=== PATIENT | female | born 1945 | race Caucasian/White ===

== ENCOUNTER → 2018-06-10 | Outpatient (CLI) | payer OTHER ==
[~2018-06-10] VITALS: Ht 154.9 cm; Wt 50.4 kg
[~2018-06-10] MED LIST: FOSAMAX 70 MG T70 MG PO; HYDROCODON-ACE1 EAC7 PO; LIPITOR 20 MG T20 M1 PO; MEDROLDOSEPACK PO; NORCO 5-325 TA1 EACH PO; PRINIVIL20 M1 PO
[2018-06-10 08:19] VITALS: BP 149/89
--- NOTE | 2018-06-10 08:43 | NUR ---
Pain Clinic Assessment: 1. History of Osteoarthritis: History of Rheumatoid Arthritis: 2. Height: 5 ft. 1 in. 154.9 cm. Weight: 111.2 lb. oz. 50.440 kg. Patient's BMI: 21.0 3. Vital Signs: BP: 149/89 Pulse: 77 Resp: 16 Temp: 02 Sat: 99 ECG Mon: 4. Pain Intensity: 8-9 5. Fall Risk: Dizziness: N Needs help standing or walking: N Fallen in the last 3 months: N Fall risk comments: 6. Patient on Blood Thinner: None 7. History of Hypertension: Y 8. Opioid Therapy greater than 6 weeks: Y Opiate Contract Signed: 9. Risk Assessment Tool Provided: LOW 10. Functional Assessment Tool: 60/70 11. Recreational Drug Use: Never Drug Type: Tobacco Use: Never Smoker Tobacco Type: Amount or Packs/day: How Many Years: Alcohol Use: Yes Frequency: Special Occasions Quant:
--- NOTE | 2018-06-16 08:15 | HPC ---
[facility] [place] [address] PAIN MANAGEMENT CONSULTATION Name: LIZBETH SANDOVAL Room #: REG [facility]..#: [id number] Admission: 06/10/18 ������������������ Attend Phys: Sergio Person DO Discharge: ������������������ Date of : 41 Report #: [id number] THIS REPORT FOR: //name// CC: FAM physician/PCP Sergio Martin MD REFERRING PHYSICIAN: Dr. Negin Martin. HISTORY OF PRESENT ILLNESS: As you know, the patient is a 73-year-old female who had an acute onset of low back pain, right lower extremity pain that began on 06/06/2018. The patient denies any specific injury or trauma, but believes it may have been caused by riding an exercise bicycle. She states that after she mounted the bicycle, it began to rise, she began to experience buttock and posterolateral thigh pain. She subsequently discontinued this activity, but her pain then progressively worsened over the past couple of days. She has no symptoms radiating below the knee typically, but has had a couple of shooting sensations radiating down all the way into the foot. She has sought no treatment from her primary care physician nor has she had been to the Emergency Department for evaluation. There are no imaging studies available. She was referred to our clinic after contacting her PCP's office. The patient describes pain as steady and constant. She uses terms such as shooting, aching, throbbing, pounding, sharp, stabbing, tender, numbness and tingling when describing pain. She places current pain score at 8-9/10, daily average at 8-9/10, worst pain has been is 10/10. The patient states that movement, lifting her leg and certain activities exacerbate symptoms. Heating pad and hydrocodone tend to help pain. She has been referred to our service for evaluation for acute onset of back pain beginning 4 days ago. She has not been participating in any physical therapy nor has imaging studies been performed. PAST MEDICAL HISTORY: 1. Hypertension. 2. Degenerative joint disease. 3. Osteoarthritis. 4. Dyslipidemia. 5. Osteoporosis. PAST SURGICAL HISTORY: 1. Excision of a ganglion cyst. 2. Total knee arthroplasty. SOCIAL HISTORY: The patient denies tobacco, IV or illicit drug use. She admits to occasional alcohol beverage. She is retired, retired years ago. She is accompanied by her who is present in room today. She is not receiving disability income. She is not in litigation in regards to pain. [facility] [address] [place] [address] PAIN MANAGEMENT CONSULTATION Name: LIZBETH SANDOVAL Room #: REG CLJay Meza#: [id number] Admission: 06/10/18 ������������������ Attend Phys: Sergio Person DO Discharge: ������������������ Date of : 41 Report #: [id number] REVIEW OF SYSTEMS: Positive for decrease in appetite, fatigue and weakness, wearing corrective eyewear, hearing loss with tinnitus, loss of appetite, changes in bowel movements, constipation, frequent urination, nocturia, difficulty ambulating secondary to pain, weakness in the right lower extremity due to pain. All other review of systems are negative per 12-point review of systems other than those listed in the history of present illness. Pain impact score 60/70 indicating severe near complete interference of daily activities secondary to pain. ALLERGIES: ERYTHROMYCIN. CURRENT MEDICATIONS: Hydrocodone 5/325 one tab p.o. q. 8 hours p.r.n. for pain, alendronate 70 mg once a week, lisinopril 20 mg per day, atorvastatin 20 mg per day. IMAGING: There is no imaging available. PQRS: The patient has known osteoarthritic changes of the bilateral knees. She does not suffer from rheumatoid arthritis. She is placing pain intensity today at 8-9/10. She is a fall risk, but has not had a fall in the last 3 months. She is using a cane for ambulation. She is not on blood thinners. She is treated for hypertension. She has been on opioids on and off for greater than 6 weeks status post total knee arthroplasty. She has a low risk for opioid addiction. Pain impact score 60/70 indicating severe near complete interference of daily activities secondary to pain. PHYSICAL EXAMINATION: VITAL SIGNS: Blood pressure 149/89, pulse is 77, respiratory rate 16 and unlabored, O2 sat 99% on room air. Height 5 feet 1 inch tall, weight 111.2 pounds, BMI calculated 21.0. GENERAL: Well-developed, well-nourished, well-hydrated, thin, 73-year-old female appearing stated age, placing current pain score at 8-9/10. HEENT: Normocephalic, atraumatic. Pupils equal, round, reactive to light. Extraocular muscles are intact. Sclerae nonicteric without injection. NEUROLOGIC: Cranial nerves 2-12 grossly intact. Speech fluent. The patient deemed a good historian. LUNGS: Clear, no wheeze, rhonchi or rales. CARDIOVASCULAR: Regular. No appreciable gallop, no rub. ABDOMEN: Soft, nontender, normal active bowel sounds. EXTREMITIES: Show no clubbing, no cyanosis, no edema. MUSCULOSKELETAL: Lower extremity strength appears symmetrical 5/5, significant giveaway strength noted with pain generation with hip flexion and knee extension on the right when compared to left. Muscle bulk and tone is symmetrical when comparing left lower extremity to right. She is intact to light touch from L1 through S2 dermatomes with typical decreased tactile sensation around the right [facility] [address] [place] [address] PAIN MANAGEMENT CONSULTATION Name: LIZBETH SANDOVAL Room #: REG CLI ..#: [id number] Admission: 06/10/18 ������������������ Attend Phys: Sergio Person DO Discharge: ������������������ Date of : 43 Report #: [id number] knee, status post total knee arthroplasty. Ankle clonus negative. Babinski is negative. Ankle reflexes are normal 1+, equal. Seated straight leg raising positive. Supine straight leg raising positive. Majo's test is negative. ASSESSMENT: 1. Lumbar radiculopathy. 2. Lumbosacral spondylosis with radicular symptoms. PLAN: 1. Based on today's physical exam and history the patient has provided, the description the patient uses in regards to pain as well as the location of symptoms, likely source of the patient's pain is lumbar radiculopathy. We discussed at length today treatment options for lumbar radicular symptoms. The following was discussed with the patient. We discussed physical therapy, stretching exercises, core strengthening as a treatment option. She is yet to initiate any of these more conservative treatment options. We discussed medication management trying to alleviate the symptoms that she is experiencing with either neuropathic pain medications or anti-inflammatory therapy. We discussed lumbar epidural injections for which the patient was referred to our clinic and ultimately surgical options. After reviewing the risks and benefits of all proposed treatment options, the patient chose to move forward with a lumbar epidural injection. The patient was advised that third [employer] payer restrictions require that authorization be obtained before the patient can undergo a lumbar epidural injection. Authorization will take anywhere from 4-7 working days. We will begin this process immediately and contact the patient once we have the authorization to undergo the procedure. 2. We have recommended the patient start a Medrol Dosepak. I prescribed this pack to be taken as directed. This will help with the inflammation the patient is experiencing and potentially reduce the overall pain the patient currently has. We have given this prescription to the patient to fill immediately and begin today. She will watch for side effects, typically flushing sensations, excessive hunger, possibly weight gain and emotional lability. If she notes any side effects, contact our clinic. 3. I have provided the patient with a short dosing of hydrocodone 5/325 one tab p.o. q. 4 hours p.r.n. for pain, I have given the patient #30 tablets, advised to take only when pain is intolerable, not to rely on the medication prophylactically. 4. We will send the patient for x-ray imaging of the lumbar spine. AP imaging will be obtained today. We will review the findings once they are available. The patient can contact our clinic tomorrow for the findings. 5. We wish to thank the referring physician for the opportunity to see the patient in consultation. We will keep you apprised of response to treatment as we address suspected lumbar radiculopathy. We will keep you apprised of her [address] [address] PAIN MANAGEMENT CONSULTATION Name: LIZBETH SANDOVAL Room #: REG CLJay Meza#: [id number] Admission: 06/10/18 ������������������ Attend Phys: Sergio Person DO Discharge: ������������������ Date of : 41 Report #: [id number] response to the epidural injection assuming we can gain authorization quickly and have the patient undergo the procedure in the next couple of days. ��������������������������������������������� <ELECTRONICALLY SIGNED> ���������������������������������������� By: Sergio Person DO ��������������������������������������������� 06/16/18 0815 [id number] [id number] Sergio Person DO /nt
== END ==
LOC: PAIN 07:04
DX: M47.26 Other spondylosis with radiculopathy, lumbar region (principal); M41.86 Other forms of scoliosis, lumbar region; M51.35 Other intervertebral disc degeneration, thoracolumbar region; I10 Essential (primary) hypertension; M19.90 Unspecified osteoarthritis, unspecified site; E78.5 Hyperlipidemia, unspecified; M81.0 Age-related osteoporosis without current pathological fracture; Z88.1 Allergy status to other antibiotic agents; Z79.899 Other long term (current) drug therapy

== ENCOUNTER → 2018-06-17 | Outpatient (CLI) | payer OTHER ==
[~2018-06-17] VITALS: Ht 154.9 cm; Wt 50.3 kg
[2018-06-17 10:50] VITALS: BP 111/70
--- NOTE | 2018-06-17 10:57 | NUR ---
Pain Clinic Assessment: 1. History of Osteoarthritis: History of Rheumatoid Arthritis: 2. Height: 5 ft. 1 in. 154.9 cm. Weight: 111.0 lb. oz. 50.349 kg. Patient's BMI: 21.0 3. Vital Signs: BP: 111/70 Pulse: 82 Resp: 14 Temp: 02 Sat: 100 ECG Mon: 4. Pain Intensity: 5-6 5. Fall Risk: Dizziness: N Needs help standing or walking: N Fallen in the last 3 months: Y Fall risk comments: 6. Patient on Blood Thinner: None 7. History of Hypertension: Y 8. Opioid Therapy greater than 6 weeks: Y Opiate Contract Signed: 9. Risk Assessment Tool Provided: LOW 10. Functional Assessment Tool: 60/70 11. Recreational Drug Use: Never Drug Type: Tobacco Use: Never Smoker Tobacco Type: Amount or Packs/day: How Many Years: Alcohol Use: No Frequency: Quant:
--- NOTE | 2018-06-23 07:33 | HPC ---
[facility] [place] [address] PAIN MANAGEMENT CONSULTATION Name: JAIMEXOCHILT Room #: REG [facility] MJulienne.#: [id number] Admission: 06/17/18 ������������������ Attend Phys: Sergio Person DO Discharge: ������������������ Date of : 41 Report #: [id number] THIS REPORT FOR: //name// CC: FAM physician/PCP JORGE L Person DATE OF SERVICE: 06/17/2018 REFERRING PHYSICIAN: Dr. Jorge L Martin. CHIEF COMPLAINT: Low back pain, right lower extremity pain and paresthesias. HISTORY OF PRESENT ILLNESS: As you know, the patient is a 73-year-old female who had acute onset of low back pain, right lower extremity pain that began on 06/06/2018. She denied any specific injury or trauma that may have led to symptom development. She believes she may have exacerbated symptoms while riding an exercise bicycle as her pain began soon after this activity. She was referred to our clinic for evaluation for suspected lumbar radiculopathy. At her first visit, the patient was seen without any imaging studies. She was sent for x-ray imaging of the lumbar spine for further evaluation. X-ray findings show diffuse lumbar spondylosis. Degenerative disk disease of the thoracolumbar spine was also noted. Severe disk changes at the T10-T11, T11-T12, T12-L1, L1-L2, L2-L3 and L5-S1, moderate disk space loss at L3-L4 and L4-5. She returns today in followup visit where we have reviewed this x-ray imaging and discussed treatment options for ongoing low back pain, right lower extremity pain with paresthesias. She indicates pain today is constant, steady, aching, shooting, throbbing, pounding, sharp, stabbing and tender, placing pain at 6/10. Moving her leg exacerbate symptoms. Heat pad, hydrocodone and lying down tends to improve pain. She has returned today in followup visit having received precertification to undergo lumbar epidural injection under fluoroscopic guidance. She is also requesting refill of hydrocodone. ALLERGIES: ERYTHROMYCIN, CEFDINIR. CURRENT MEDICATIONS: Hydrocodone, Fosamax, lisinopril and atorvastatin. SOCIAL HISTORY: The patient denies tobacco, IV or illicit drug use. Admits to occasional alcohol beverage. She is retired, retired years ago, accompanied by her present in room today. IMAGING DATA: X-rays show diffuse lumbar spondylosis and degenerative changes, essentially from T10 all the way to L5-S1, with moderate disk height loss noted at L3-L4 and L4-L5. PHYSICAL EXAMINATION: [address] [address] PAIN MANAGEMENT CONSULTATION Name: LIZBETH SANDOVAL ANN Room #: REG Jay [facility]rera.#: [id number] Admission: 06/17/18 ������������������ Attend Phys: Sergio Person DO Discharge: ������������������ Date of : 41 Report #: [id number] VITAL SIGNS: Blood pressure 111/70, pulse 82, respiratory rate 14 and unlabored. The patient is 100% on room air. Height 5 feet 1 inch tall, weight 111 pounds, BMI calculated 21.0. GENERAL: Well-developed, well-nourished, well-hydrated 73-year-old female, appears her stated age. She is in mild distress secondary to pain, placing current pain score 5-6/10. HEENT: Normocephalic, atraumatic. Pupils equal, round, reactive to light. Extraocular muscles are intact. Sclerae nonicteric without injection. NEUROLOGIC: Cranial nerves 2-12 grossly intact. Speech fluent. The patient deemed a fair historian. EXTREMITIES: Show no clubbing, no cyanosis, and no edema. MUSCULOSKELETAL: Lower extremity strength is weakened slightly on the right compared to left. This is noted with hip flexion, knee extension, appears to be related to pain generation, not intrinsic muscle problems. Intact to light touch from L1 through S2 dermatomes. Seated straight leg raising positive on the right. Supine straight leg raising positive on the right. Majo test is negative. Gait antalgic favoring right lower extremity over left. ASSESSMENT: 1. Lumbar radiculopathy. 2. Displacement of lumbar intervertebral disk with radiculopathy. 3. Lumbosacral spondylosis with radiculopathy. 4. Degeneration of lumbar spine. 5. Facet arthropathy of the lumbar spine. 6. Chronic intractable pain. PLAN: 1. The patient has returned today in followup visit where we reviewed her x-ray imaging. There are significant changes, essentially from the T10-[address] to the L5-S1 level, with L3-L4 and L4-L5 being only moderately noted to have disk desiccation and disk height loss. Remainder of the lumbar spine shows severe height loss, which would correlate to likely central canal stenosis and certainly neural foraminal stenosis. We discussed with the patient the findings of the x-ray today. Further evaluation may be necessary with MRI. 2. The patient has been consented, and we will perform lumbar epidural injection under fluoroscopic guidance. We have received preauthorization to undergo the procedure. She was advised the risks and benefits, states understood and wished to proceed. The risks that we discussed today were bleeding, bruising, infection, worsening pain, no relief of pain, also risk of temporary or permanent muscle weakness, temporary or permanent nerve damage, possible paralysis, post-dural puncture headache and . The patient states understood and wished to proceed. 3. No medication changes made at today's visit. The patient will continue current medical therapy as previously prescribed. 4. I did provide the patient with a refill prescription of hydrocodone 5/325 one tab p.o. q.4 hours p.r.n. for pain, I have given the patient #60 tablets, [address] [address] PAIN MANAGEMENT CONSULTATION Name: LIZBETH SANDOVAL Room #: REG AMMY Meza#: [id number] Admission: 06/17/18 ������������������ Attend Phys: Sergio Person DO Discharge: ������������������ Date of : 43 Report #: [id number] advised the patient to take the medication only when pain is intolerable, not to rely on this medication prophylactically. A prescription was given with no refills. 5. We will see the patient back in followup visit on an as needed basis for possible next in the series of epidural injections. PROCEDURE NOTE DESCRIPTION OF PROCEDURE: L5-S1 right paramedian epidural steroid injection under fluoroscopic guidance. This is the first procedure of the first series that the patient is undergoing. After obtaining written consent, the patient was taken back to the fluoroscopy suite, placed in a prone position with pillow under the abdomen to decrease lumbar lordosis. The skin overlying the lumbosacral area was then prepped and draped in aseptic fashion. The L5-S1 vertebral interspace was then identified by AP fluoroscopy. The skin and subcutaneous tissue overlying the target site of injection was anesthetized with 3 mL 1% lidocaine. A 20-gauge 3-1/2 inch Tuohy needle was then advanced under fluoroscopic guidance towards the epidural space using a right paramedian approach. The epidural space was identified using loss of resistance to air technique. After negative aspiration for heme or cerebrospinal fluid, a total of 1 mL of Omnipaque was injected. A lumbar epidurogram was confirmed using both AP and lateral fluoroscopy. After negative aspiration for heme or cerebrospinal fluid, 5 mL of a solution containing 2 mL 40 mg per mL, 80 mg total triamcinolone, 3 mL of lidocaine 1% was injected in increments. Contrast spread was noted in posterior epidural space. The needle was then retracted approximately half way and needle tract flushed with 1 mL of lidocaine. Needle was then removed. There were no apparent sensory or motor deficits in the lower extremity following the procedure. A sterile bandage was placed over the injection site. The heart rate, pulse, oximetry and blood pressure were continuously monitored after the procedure. There were no apparent complications. The patient tolerated the procedure well and was carefully escorted to the recovery room in stable condition. There were no apparent complications. After meeting discharge criteria, the patient was then discharged home. ��������������������������������������������� <ELECTRONICALLY SIGNED> ���������������������������������������� By: Sergio Person DO ��������������������������������������������� 06/23/18 0733 [id number] [id number] Sergio Person DO /nt
== END | disposition home or self-care (01) ==
LOC: PAIN 06-16 09:21
DX: M51.16 Intervertebral disc disorders with radiculopathy, lumbar region (principal); M47.27 Other spondylosis with radiculopathy, lumbosacral region; M46.96 Unspecified inflammatory spondylopathy, lumbar region; G89.29 Other chronic pain; Z88.8 Allergy status to other drugs, medicaments and biological substances; Z79.891 Long term (current) use of opiate analgesic; Z79.899 Other long term (current) drug therapy

== ENCOUNTER → 2018-06-26 | Outpatient (CLI) | payer OTHER ==
[~2018-06-26] MED LIST changes: +NEURONTIN 300300 M1 PO
== END ==
LOC: MRI 12:14
DX: M51.16 Intervertebral disc disorders with radiculopathy, lumbar region (principal); M48.061 Spinal stenosis, lumbar region without neurogenic claudication; M43.16 Spondylolisthesis, lumbar region

== ENCOUNTER → 2018-06-30 | Outpatient (CLI) | payer OTHER ==
[~2018-06-30] VITALS: Ht 154.9 cm; Wt 49.4 kg
--- NOTE | ~2018-06-30 | HPC ---
[facility] [address] [place] [address] PAIN MANAGEMENT CONSULTATION Name: LIZBETH SANDOVAL ANN Room #: REG Jay Cabrera.#: [id number] Admission: 06/30/18 ������������������ Attend Phys: Sergio Person DO Discharge: ������������������ Date of : 41 Report #: [id number] THIS REPORT FOR: //name// CC: [facility] physician/PCP Sergio Martin MD Physician staff DATE OF SERVICE: 07/08/2018 REFERRING PHYSICIAN: Dr. Negin Martin. CHIEF COMPLAINT: Low back pain, right lower extremity pain and paresthesias. HISTORY OF PRESENT ILLNESS: As you know, the patient is a 73-year-old female who returns today in followup visit with pain level of 5-6/10. She reports that previous evaluation and medication refills along with the right paramedian epidural injection provided improvement in symptoms, but unfortunately, this injection only provided minimal long-term gain. She returns to discuss options for treatment. She denies new injury or trauma that may have led to symptom recurrence. As you are aware, the patient has severe disk changes at T10-T11, T11-T12, T12-L1, L1-L2, L2-L3 and L5-S1. There is a likely source of the patient's symptoms is of lumbar radiculopathy with facet arthropathy pain. She wishes to discuss other treatment options as the injection provided at last visit did not provide benefit. ALLERGIES: E-MYCIN, CEFDINIR. CURRENT MEDICATIONS: Hydrocodone, Fosamax, lisinopril and atorvastatin. SOCIAL HISTORY: The patient denies tobacco, IV or illicit drug use. Admits to an occasional alcoholic beverage use. She is retired, retired years ago, unaccompanied today. IMAGING: No further imaging available. PQRS: The patient has known arthritic changes of the thoracolumbar spine, the bilateral hips and bilateral knees. She does not have rheumatoid arthritis. She is placing current pain score at 5-6/10. She is not a fall risk, but did have a fall recently. Apparently, she lost balance, this is not typical for her. She is not on blood thinners. She is treated for hypertension. She is on opioids. She has a low opioid addiction potential and she is placing pain impact score at 60/70 indicating essentially complete interference of daily activities secondary to pain. PHYSICAL EXAMINATION: [facility] [address] [place] [address] PAIN MANAGEMENT CONSULTATION Name: LIZBETH SANDOVAL Room #: REG JHONJay Meza#: [id number] Admission: 06/30/18 ������������������ Attend Phys: Sergio Person DO Discharge: ������������������ Date of : 41 Report #: [id number] VITAL SIGNS: Blood pressure 141/78, pulse 71, respiratory rate 16 and unlabored. The patient is 100% on room air. Height 5 feet 1 inch tall, weight 109 pounds, BMI calculated 20.6. GENERAL: Well-developed, well-nourished, well-hydrated, thin 73-year-old female, appearing stated age. Pain is rated somewhere between 5-6/10. HEENT: Normocephalic, atraumatic. Pupils equal, round, reactive to light. EXTREMITIES: Show no clubbing, no cyanosis and no edema. MUSCULOSKELETAL: Lower extremity strength appears weakened bilaterally, right greater than left. Noted hip flexion, knee extension pain. She remains intact to light touch from L1 through S2 dermatomes. Seated straight leg raising positive. Supine straight leg raising positive. Majo's test negative. Modified Gaenslen's positive for axial low back pain. ASSESSMENT: 1. Symptomatic lumbar radiculopathy. 2. Displacement of lumbar intervertebral disk with radiculopathy. 3. Lumbosacral spondylosis with radiculopathy. 4. Lumbar degeneration. 5. Facet arthropathy of the lumbar spine. 6. Chronic intractable pain. PLAN: 1. The patient returns today in followup visit having noted only transient improvement in symptoms with the epidural injection provided at last visit. Would not recommend that further treatments with epidural injections be provided at this juncture. Would recommend adjustments in medication therapy. We are also recommending physical therapy. 2. The patient will be sent for physical therapy twice a week for 4-6 weeks. She will begin the physical therapy as quickly as possible. We will await their evaluation and we will make adjustments as necessary to help the patient's symptoms. 3. We reviewed the fact that opiate medications are being used to provide analgesia adequate to support activities of daily living, not attempting to achieve a specific pain score on the 0-10 Visual Analog Scale. The current opiate medications are providing sufficient analgesia to allow the patient to participate in activities of daily living. The patient is not exhibiting any aberrant behavior suggestive of drug diversion. The patient is not having any adverse reactions to medications. The patient is not suffering from daytime somnolence or mental acuity changes. The patient is managing opiate-induced constipation with appropriate [id number] agents and dietary considerations. The patient was counseled on concern for caution with operating a motor vehicle while using opiate medications. A physical exam was performed and the patient's functional status was evaluated. All patients with back pain were advised against the bed rest greater than 4 days and were advised to return to normal activities. Pain score assessment was [address] [address] PAIN MANAGEMENT CONSULTATION Name: LIZBETH SANDOVAL Room [facility] [id number] Admission: 06/30/18 ������������������ Attend Phys: Sergio Person DO Discharge: ������������������ Date of : 41 Report #: [id number] noted and the treatment plan was reviewed with the patient. All current medications, both prescribed and OTC were reviewed and reconciled on the electronic medical record. Tobacco screening was accomplished and smoking cessation was advised when indicated. BMI was noted and diet/exercise modification was recommended for all patients following outside normal parameters. I reviewed with the patient today their responsibilities to safeguard prescription medications, reviewed their responsibility to utilize medications only as prescribed by the physician. They are to seek and receive pain medications only from 1 physician group ( [facility]). They are to use 1 pharmacy and keep the clinic informed if they change pharmacies. Their responsibilities include making followup visits in a timely fashion and to avoid abrupt discontinuation of medication usage. Their responsibilities further include bringing their medications (bottles from the pharmacy with residual pills) to the visit for possible confirmation of pill counts and the patient understands it is their responsibility to submit to random drug screens to ensure both that the medications prescribed are present, and that no other controlled substances are present. All prescriptions provided today were generated electronically. 4. The patient was provided prescription of hydrocodone/acetaminophen 5/325 one tablet p.o. q. 4-6 hours p.r.n. for pain. I have given the patient #60 tablets, no refills. Advised to take the medication as directed, not to rely on the medication prophylactically. 5. We will increase the patient's neuropathic medication by initiating gabapentin therapy. She will start 1 tablet p.o. bedtime for 3 days, then 2 tablets p.o. at bedtime for 3 days, then 3 tablets p.o. at bedtime for 3 days, then 1 tablet p.o. q.a.m., 3 tablets p.o. at bedtime. I have given the patient #120 tablets. She is to watch for side effects with the medication. She will contact the clinic with any questions or concerns. 6. We will see the patient back in followup visit in approximately 1 month. At that time, review the efficacy of the medication provided and the physical therapy requested. ��������������������������������������������� ���������������������������������������� By: ��������������������������������������������� [id number] Sergio Person DO /[place]
[2018-06-30 12:45] VITALS: BP 141/78
--- NOTE | 2018-06-30 12:51 | NUR ---
Pain Clinic Assessment: 1. History of Osteoarthritis: Left Lower Extremity Left Upper Extremity History of Rheumatoid Arthritis: Not Applicable 2. Height: 5 ft. 1 in. 154.9 cm. Weight: 109.0 lb. oz. 49.442 kg. Patient's BMI: 20.6 3. Vital Signs: BP: 141/78 Pulse: 71 Resp: 16 Temp: 02 Sat: 100 ECG Mon: 4. Pain Intensity: 5-6 5. Fall Risk: Dizziness: N Needs help standing or walking: N Fallen in the last 3 months: Y Fall risk comments: 6. Patient on Blood Thinner: None 7. History of Hypertension: Y 8. Opioid Therapy greater than 6 weeks: Y Opiate Contract Signed: 9. Risk Assessment Tool Provided: LOW 0 10. Functional Assessment Tool: 60/70 11. Recreational Drug Use: Never Drug Type: Tobacco Use: Never Smoker Tobacco Type: Amount or Packs/day: How Many Years: Alcohol Use: No Frequency: Quant:
== END ==
LOC: PAIN 07:02
DX: M47.27 Other spondylosis with radiculopathy, lumbosacral region (principal); M51.16 Intervertebral disc disorders with radiculopathy, lumbar region; M46.86 Other specified inflammatory spondylopathies, lumbar region; G89.29 Other chronic pain; Z88.1 Allergy status to other antibiotic agents; Z79.899 Other long term (current) drug therapy